=== PATIENT | male | born 1960 | race Caucasian/White ===

== ENCOUNTER 2020-12-22 15:41 | Outpatient (CLI) | payer BC | END 2020-12-22 15:42 | disposition home or self-care (01) | LOC: BICRAD 15:41 | PROVIDERS: ATTEND Family Medicine | DX: M79.605 Pain in left leg (principal) ==

== ENCOUNTER 2021-01-12 10:37 | Outpatient (CLI) | payer BC | END 2021-01-12 10:38 | disposition home or self-care (01) | LOC: TBSIIMAG 10:37 | PROVIDERS: ATTEND Family Medicine | DX: M50.10 Cervical disc disorder with radiculopathy, unspecified cervical region (principal) | CPT/HCPCS: 72141 ==

== ENCOUNTER 2023-03-29 10:27 | Outpatient (CLI) | payer BC | END 2023-03-29 10:28 | disposition home or self-care (01) | LOC: BICMRI 10:27 | PROVIDERS: ATTEND Nurse Practitioner Family | DX: M47.26 Other spondylosis with radiculopathy, lumbar region (principal); M47.817 Spondylosis without myelopathy or radiculopathy, lumbosacral region; I71.43 Infrarenal abdominal aortic aneurysm, without rupture | CPT/HCPCS: 72148 ==

== ENCOUNTER 2024-10-31 07:02 | Outpatient (CLI) | payer BC | END 2024-10-31 07:03 | disposition home or self-care (01) | LOC: ULT 07:02 | PROVIDERS: ATTEND Family Medicine | DX: I71.40 Abdominal aortic aneurysm, without rupture, unspecified (principal); K76.0 Fatty (change of) liver, not elsewhere classified; K76.89 Other specified diseases of liver | CPT/HCPCS: 76700 ==